=== PATIENT | male | born 1945 | race Two or more races ===

== ENCOUNTER → 2022-01-31 | Outpatient (CLI) | payer OTHER ==
[~2022-01-31] MED LIST: PROTONIX40 MG PO; ZANTAC150 MG PO
== END | disposition home or self-care (01) ==
LOC: RAD 11:59
PROVIDERS: ATTEND Orthopaedic Surgery Adult Reconstructive Orthopaedic Surgery
DX: M17.12 Unilateral primary osteoarthritis, left knee (principal); M16.11 Unilateral primary osteoarthritis, right hip; Z96.651 Presence of right artificial knee joint; I11.9 Hypertensive heart disease without heart failure

== ENCOUNTER 2023-12-13 20:00 | Emergency (ER) | payer OTHER ==
[~2023-12-13] VITALS: Ht 177.8 cm; Wt 95.3 kg
[2023-12-13] MEDS ORDERED: KETOROLAC TROMETHAMINE 60 MG VIAL IM ONE (23:45)
== END 2023-12-13 23:38 | disposition home or self-care (01) ==
LOC: ER 20:02
DX: S89.80XA Other specified injuries of unspecified lower leg, initial encounter (principal); W19.XXXA Unspecified fall, initial encounter; Y93.89 Activity, other specified; Y92.512 Supermarket, store or market as the place of occurrence of the external cause; Y99.8 Other external cause status; I10 Essential (primary) hypertension
CPT/HCPCS: 70450; 72125; 73521; 73700; 96372; 99284; J1885